=== PATIENT | male | born 1975 | race Caucasian/White ===

== ENCOUNTER 2021-11-08 09:20 | Emergency (ER) | payer OTHER ==
[2021-11-08 09:33] LABS: BASOPHIL 1.2 % (0-2); HCT 49.6 % (42.0-52.0); LYMPHOCYTE 43.3 % (15-48); MCH 30.9 pg (25.0-31.0); MCHC 34.3 g/dL (32.0-36.0); MCV 90.2 fL (78.0-100.0); MONOCYTE 11.7 % (0-12); MPV 11.1 fL (6.0-9.5); NEUTROPHIL 40.1 % (41-80); NRBC 0; PLT 270 K/uL (150-400); RDW 12.9 % (11.5-14.0); WBC 10.5 K/uL (4.0-10.5)
[2021-11-08 09:56] LABS: BUN/CREAT RATIO (CALC) 25.9 RATIO; CREATININE 1.12 mg/dL (0.67-1.17); POTASSIUM 3.5 mmol/L (3.5-5.1)
[2021-11-08] MEDS ORDERED: EPINEPHRIN0.3 MG/0.3 IM (12:27)
[2021-11-08 17:23] LABS: INR 1.01 (0.9-1.2); PTT 22.4 SECONDS (24.9-34.6)
== END 2021-11-08 19:34 | disposition other institution (70) ==
LOC: FER 09:20
PROVIDERS: Internal Medicine
DX: T63.461A Toxic effect of venom of wasps, accidental (unintentional), initial encounter (principal); J98.01 Acute bronchospasm; R07.9 Chest pain, unspecified; I21.4 Non-ST elevation (NSTEMI) myocardial infarction; I10 Essential (primary) hypertension; F17.220 Nicotine dependence, chewing tobacco, uncomplicated; Z91.038 Other insect allergy status; Z79.82 Long term (current) use of aspirin; Z79.899 Other long term (current) drug therapy; Z20.822 Contact with and (suspected) exposure to COVID-19
CPT/HCPCS: 36415; 71045; 80048; 84484; 85025; 85610; 85730; 93005; 94640; 94664; 96372; J1644; J2405; J7030; U0002